=== PATIENT | female | born 1970 | race Caucasian/White ===

== ENCOUNTER 2024-03-28 01:20 | Observation (INO) | payer OTHER ==
[2024-03-28] MEDS: SODIUM CHLORIDE 0.9% 500 ML 500 ML IV STA (02:06)
[2024-03-28] MEDS: KETOROLAC 15 MG/ML 1 ML VIAL IVP STA (02:06)
[2024-03-28 02:34] LABS: ALT 11 U/L (4-34); AST 19 U/L (14-36); African American GFR (CKD) >90 (>60 ml/min/1.73 sqM); Albumin 3.6 g/dL (3.5-5.0); Alkaline Phosphatase 61 U/L (38-126); Anion Gap 2 mmol/L; Blood Urea Nitrogen 20 mg/dL (7-17); Calcium 8.5 mg/dL (8.4-10.2); Carbon Dioxide 30 mmol/L (22-30); Chloride 106 mmol/L (98-107); Glucose 101 mg/dL (74-99); Non-African American GFR(CKD) >90 (>60 ml/min/1.73 sqM); Potassium 3.4 mmol/L (3.5-5.1); Sodium 138 mmol/L (137-145); Total Bilirubin 0.3 mg/dL (0.2-1.3); Total Protein 6.5 g/dL (6.3-8.2)
[2024-03-28 02:39] LABS: Basophils # (A) 0.1 k/uL (0-0.2); Basophils % (A) 1 %; Eosinophils # (A) 0.1 k/uL (0-0.7); Eosinophils % (A) 2 %; HCT 33.8 % (34.0-46.0); HGB 11.3 gm/dL (11.4-16.0); Lymphocytes # (A) 1.3 k/uL (1.0-4.8); Lymphocytes % (A) 24 %; MCH 29.6 pg (25.0-35.0); MCHC 33.4 g/dL (31.0-37.0); MCV 88.6 fL (80.0-100.0); Mean Platelet Volume 7.6; Monocytes # (A) 0.5 k/uL (0-1.0); Monocytes % (A) 10 %; Neutrophils # (A) 3.4 k/uL (1.3-7.7); Neutrophils % (A) 62 %; Platelet Count 198 k/uL (150-450); RBC 3.82 m/uL (3.80-5.40); RDW 12.7 % (11.5-15.5); WBC 5.6 k/uL (3.8-10.6)
[2024-03-28 02:53] LABS: Appearance,Urine Clear (Clear); Bilirubin,Urine Negative (Negative); Blood,Urine Trace (Negative); Color,Urine Light Yellow; Glucose,Urine (UA) Negative (Negative); Ketones,Urine Negative (Negative); Leukocyte Esterase,Urine Negative (Negative); Mucus,Urine Rare /hpf; Nitrite,Urine Negative (Negative); PH, Urine 5.5 (5.0-8.0); Protein,Urine Negative (Negative); RBC,Urine 1 /hpf (0-5); Specific Gravity,Urine 1.024 (1.001-1.035); Squamous Epithelial Cell,Urine 1 /hpf (0-4); Urobilinogen,Urine <2.0 mg/dL (<2.0); WBC,Urine 1 /hpf (0-5)
--- NOTE | 2024-03-28 03:33 | ED ---
Abdominal Pain HPI - General Source: patient Mode of arrival: ambulatory <Jaiden Cook - Last Filed: 03/28/24 04:22> <Prasad Quintero - Last Filed: 03/28/24 05:53> - General Chief Complaint: Abdominal Pain Stated Complaint: abd pain and swelling Time Seen by Provider: 03/28/24 01:45 - History of Present Illness Initial Comments: 54-year-old female with chief complaint of pain to the abdomen. Patient has had this pain for a long over the right lower quadrant for about a month. She states that it seems to be increasing in size. No nausea or vomiting. No constipation or diarrhea. No fevers or chills. She denies any injury or tra starr. (Jaiden Cook) - Related Data Allergies Allergy/AdvReac Type Severity Reaction Status Date / Time No Known Allergies Allergy Verified 03/28/24 01:39 Review of Systems ROS Other: All systems not noted in ROS Statement are negative. <Jaiden Cook - Last Filed: 03/28/24 04:22> ROS Other: All systems not noted in ROS Statement are negative. <Prasad Quintero - Last Filed: 03/28/24 05:53> ROS Statement: Those systems with pertinent positive or pertinent negative responses have been documented in the HPI. General Exam Limitations: no limitations General appearance: alert, in no apparent distress Head exam: Present: atraumatic, normocephalic Eye exam: Present: normal appearance, EOMI Neck exam: Present: normal inspection. Absent: meningismus Respiratory exam: Present: normal lung sounds bilaterally. Absent: respiratory distress, wheezes, rales, rhonchi, stridor Cardiovascular Exam: Present: regular rate, normal rhythm, normal heart sounds. Absent: systolic murmur, diastolic murmur, rubs, gallop, clicks GI/Abdominal exam: Present: soft, hernia. Absent: distended, tenderness, guarding, rebound, rigid Neurological exam: Present: alert, oriented X3 Psychiatric exam: Present: normal affect, normal mood Skin exam: Present: warm, dry <Jaiden Cook - Last Filed: 03/28/24 04:22> Course Vital Signs 03/28/24 03/28/24 01:33 03:08 Temperature 98.3 F Pulse Rate 71 60 Respiratory 18 16 Rate Blood Pressure 108/65 100/64 O2 Sat by Pulse 99 97 Oximetry Medical Decision Making - Lab Data Result diagrams: 03/28/24 02:00 03/28/24 02:00 <Jaiden Cook - Last Filed: 03/28/24 04:22> - Lab Data Result diagrams: 03/28/24 02:00 03/28/24 02:00 <Prasad Quintero - Last Filed: 03/28/24 05:53> - Medical Decision Making Was pt. sent in by a medical professional or institution (, PA, STRIPPER MACHINE OPERATOR, urgent care, hospital, or correction...) When possible be specific @ -No Did you speak to anyone other than the patient for history (EMS, parent, family, police, friend...)? What history was obtained from this source @ -No Did you review nursing and triage notes (agree or disagree)? Why? @ -I reviewed and agree with nursing and triage notes Were old charts reviewed (outside hosp., previous admission, EMS record, old EKG , old radiological studies, urgent care reports/EKG's, correction records)? Report findings @ -No old charts were reviewed Differential Diagnosis (chest pain, altered mental status, abdominal pain women, abdominal pain men, vaginal bleeding, weakness, fever, dyspnea, syncope, headache, dizziness, GI bleed, back pain, seizure, CVA, palpatations, mental health, musculoskeletal)? @ -MDM Differential Abdominal Pain Women: Appendicitis, Cholecystitis, diverticulosis, ischemic bowel, pancreatitis, hepatitis, UTI, gastroenteritis, AAA, incarcerated hernia, bowel obstruction, constipation, inflammatory bowel, hepatitis, peptic ulcer disease, splenic infarction, perforated viscus, vulvitis, ovarian torsion, PID, kidney stone, placenta abruption... This is not meant to be an all-inclusive list EKG interpreted by me (3pts min.). @ -As above X-rays interpreted by me (1pt min.). @ -None done CT interpreted by me (1pt min.). @ -Report pending U/S interpreted by me (1pt. min.). @ -None done What testing was considered but not performed or refused? (CT, X-rays, U/S, labs)? Why? @ -None What meds were considered but not given or refused? Why? @ -None Did you discuss the management of the patient with other professionals (professionals i.e. Dr., PA, STRIPPER MACHINE OPERATOR, lab, RT, psych nurse, social media manager, lawyer real estate, teacher, seismology technical officer, director of casework department)? Give summary @ -No Was smoking cessation discussed for >3mins.? @ -No Was critical care preformed (if so, how long)? @ -No Were there social determinants of health that impacted care today? How? (Homelessness, low income, unemployed, alcoholism, drug addiction, transportation, low edu. Level, literacy, decrease access to med. care, penitentiary, rehab)? @ -No Was there de-escalation of care discussed even if they declined (Discuss DNR or withdrawal of care, Hospice)? DNR status @ -No What co-morbidities impacted this encounter? (DM, HTN, Smoking, COPD, CAD, Cancer, CVA, ARF, Chemo, Hep., AIDS, mental health diagnosis, sleep apnea, morbid obesity)? @ -None Was patient admitted / discharged? Hospital course, mention meds given and route, prescriptions, significant lab abnormalities, going to OR and other pertinent info. @ -54-year-old female presenting with chief complaint of painful lump to the abdominal wall. Appears consistent with hernia. I am unable to reduce this on exam. Lactic acid is WNL. CT is obtained and report is pending. Patient is signed out to my attending Dr. Quintero (Jaiden Cook) Clinical presentation consistent with incarcerated hernia. Case discussed with on-call general surgery, Dr. Rogers was going to accept the patient as an observation admission.. (Prasad Quintero) - Lab Data Lab Results 03/28/24 03/28/24 03/28/24 Range/Units 02:00 02:00 02:00 WBC 5.6 (3.8-10.6) k/uL RBC 3.82 (3.80-5.40) m/uL Hgb 11.3 L (11.4-16.0) gm/dL Hct 33.8 L (34.0-46.0) % MCV 88.6 (80.0-100.0) fL MCH 29.6 (25.0-35.0) pg MCHC 33.4 (31.0-37.0) g/dL RDW 12.7 (11.5-15.5) % Plt Count 198 (150-450) k/uL MPV 7.6 Neutrophils % 62 % Lymphocytes % 24 % Monocytes % 10 % Eosinophils % 2 % Basophils % 1 % Neutrophils # 3.4 (1.3-7.7) k/uL Lymphocytes # 1.3 (1.0-4.8) k/uL Monocytes # 0.5 (0-1.0) k/uL Eosinophils # 0.1 (0-0.7) k/uL Basophils # 0.1 (0-0.2) k/uL Sodium 138 (137-145) mmol/L Potassium 3.4 L (3.5-5.1) mmol/L Chloride 106 (98-107) mmol/L Carbon Dioxide 30 (22-30) mmol/L Anion Gap 2 mmol/L BUN 20 H (7-17) mg/dL Creatinine 0.57 (0.52-1.04) mg/dL Est GFR (CKD-EPI)AfAm >90 (>60 ml/min/1.73 sqM) Est GFR (CKD-EPI)NonAf >90 (>60 ml/min/1.73 sqM) Glucose 101 H (74-99) mg/dL Plasma Lactic Acid Jed (0.7-2.0) mmol/L Calcium 8.5 (8.4-10.2) mg/dL Total Bilirubin 0.3 (0.2-1.3) mg/dL AST 19 (14-36) U/L ALT 11 (4-34) U/L Alkaline Phosphatase 61 (38-126) U/L Total Protein 6.5 (6.3-8.2) g/dL Albumin 3.6 (3.5-5.0) g/dL Urine Color Light Yellow Urine Appearance Clear (Clear) Urine pH 5.5 (5.0-8.0) Ur Specific Pearl 1.024 (1.001-1.035) Urine Protein Negative (Negative) Urine Glucose (UA) Negative (Negative) Urine Ketones Negative (Negative) Urine Blood Trace H (Negative) Urine Nitrite Negative (Negative) Urine Bilirubin Negative (Negative) Urine Urobilinogen <2.0 (<2.0) mg/dL Ur Leukocyte Esterase Negative (Negative) Urine RBC 1 (0-5) /hpf Urine WBC 1 (0-5) /hpf Ur Squamous Epith Cells 1 (0-4) /hpf Urine Mucus Rare H (None) /hpf 03/28/24 Range/Units 02:10 WBC (3.8-10.6) k/uL RBC (3.80-5.40) m/uL Hgb (11.4-16.0) gm/dL Hct (34.0-46.0) % MCV (80.0-100.0) fL MCH (25.0-35.0) pg MCHC (31.0-37.0) g/dL RDW (11.5-15.5) % Plt Count (150-450) k/uL MPV Neutrophils % % Lymphocytes % % Monocytes % % Eosinophils % % Basophils % % Neutrophils # (1.3-7.7) k/uL Lymphocytes # (1.0-4.8) k/uL Monocytes # (0-1.0) k/uL Eosinophils # (0-0.7) k/uL Basophils # (0-0.2) k/uL Sodium (137-145) mmol/L Potassium (3.5-5.1) mmol/L Chloride (98-107) mmol/L Carbon Dioxide (22-30) mmol/L Anion Gap mmol/L BUN (7-17) mg/dL Creatinine (0.52-1.04) mg/dL Est GFR (CKD-EPI)AfAm (>60 ml/min/1.73 sqM) Est GFR (CKD-EPI)NonAf (>60 ml/min/1.73 sqM) Glucose (74-99) mg/dL Plasma Lactic Acid Jed 0.8 (0.7-2.0) mmol/L Calcium (8.4-10.2) mg/dL Total Bilirubin (0.2-1.3) mg/dL AST (14-36) U/L ALT (4-34) U/L Alkaline Phosphatase (38-126) U/L Total Protein (6.3-8.2) g/dL Albumin (3.5-5.0) g/dL Urine Color Urine Appearance (Clear) Urine pH (5.0-8.0) Ur Specific Pearl (1.001-1.035) Urine Protein (Negative) Urine Glucose (UA) (Negative) Urine Ketones (Negative) Urine Blood (Negative) Urine Nitrite (Negative) Urine Bilirubin (Negative) Urine Urobilinogen (<2.0) mg/dL Ur Leukocyte Esterase (Negative) Urine RBC (0-5) /hpf Urine WBC (0-5) /hpf Ur Squamous Epith Cells (0-4) /hpf Urine Mucus (None) /hpf Disposition <Jaiden Cook - Last Filed: 03/28/24 04:22> Decision Time: 05:53 <Prasad Quintero - Last Filed: 03/28/24 05:53> Clinical Impression: Incarcerated hernia Disposition: ADMITTED IP TO THIS HOSP Condition: Fair Referrals: Shiloh Omalley MD [Primary Care Provider] - 1-2 days
[2024-03-28] MEDS ORDERED: NALOXONE 0.4 MG/ML 1 ML VIAL IV PRN (05:25)
[2024-03-28] MEDS ORDERED: ONDANSETRON 4 MG/2 ML VIAL IVP PRN (05:25)
[2024-03-28] MEDS: SODIUM CHLORIDE 0.9% 1,000 ML IV SCH (05:40)
--- NOTE | 2024-03-28 05:52 | CT ---
EXAMINATION TYPE: CT abdomen pelvis w con DATE OF EXAM: 03/28/2024 HISTORY: hernia CT DLP: 603.7mGycm Automated Exposure Control for Dose Reduction was Utilized. CONTRAST: CT scan of the abdomen and pelvis is performed with IV Contrast, patient injected with 100 mL of Isov ue 370. COMPARISON: None. FINDINGS: LUNG BASES: No significant abnormality is appreciated. LIVER/GB: Contracted gallbladder. PANCREAS: No significant abnormality is seen. SPLEEN: No significant abnormality is seen. ADRENALS: No significant abnormality is seen. KIDNEYS: No significant abnormality is seen. BOWEL: No significant abnormality is seen. UTERUS/ADNEXA: Anteverted uterus displaced left of midline is seen. Superior to this there is a thin- walled cyst or cystic lesion measuring 11.5 x 12.5 cm axial image 58 with a heterogeneous solid compo nent along the superior right aspect measuring 7.5 x 4.9 cm axial image 50. LYMPH NODES: No greater than 1cm abdominal or pelvic lymph nodes are appreciated. OSSEOUS STRUCTURES: No significant abnormality is seen. OTHER: In the midline of the anterior wall of the pelvis there is small focal hernia with narrow neck measuring 1.2 cm-image 51-containing fat and ill-defined fluid. IMPRESSION: 1. Confirmation of narrow neck ventral wall hernia in the anterior wall of the upper pelvis below the umbilicus containing fat and ill-defined fluid. 2. There is a thin-walled cyst or cystic lesion in the pelvis with a solid component or adjacent hete rogeneous solid lesion with local mass effect worrisome for neoplasm. Ovarian origin is suspected. Ad vise gynecology oncology follow-up.
[2024-03-28] MEDS: KETOROLAC 15 MG/ML 1 ML VIAL IVP PRN (08:13)
[2024-03-28] MEDS: POTASSIUM CHLORIDE ER 20 MEQ TAB.ER PO SCH (10:13)
--- NOTE | 2024-03-28 13:03 | P.GSHP ---
History of Present Illness H&P Date: 03/28/24 Chief Complaint: Hernia 54-year-old female has history of a bulge right lower midline for the last month or 2. Increasing in discomfort over the last several days. Came to the ER for further evaluation. Patient with history of previous in the past. CAT scan was obtained showing a large cystic mass involving the pelvis. It is compressing the urinary bladder. Patient describes frequent urinary urgency and frequency. The hernia itself contains mildly inflamed fat. Per the patient this is not reducing spontaneously or with efforts. Pain is minimal today. No nausea or vomiting. Has not seen a institute director in many years. - Review of Systems Comment: The patient denies any acute changes in vision or hearing, no dysphagia or odynophagia, no chest pain or shortness of breath, no dysuria or hematuria, no headache, no runny nose, no rectal bleeding or melena, no unexplained weight loss Past Medical History Past Medical History: Asthma, Pneumonia History of Any Multi-Drug Resistant Organisms: None Reported Past Surgical History: Tubal Ligation Additional Past Surgical History / Comment(s): c sectionsx3 Past Psychological History: Anxiety, Depression Smoking Status: Former smoker, Vaper - Past Family History Father Family Medical History: COPD Medications and Allergies Home Medications Medication Instructions Recorded Confirmed Type Escitalopram [Lexapro] 20 mg PO DAILY 03/28/24 03/28/24 History Allergies Allergy/AdvReac Type Severity Reaction Status Date / Time No Known Allergies Allergy Verified 03/28/24 07:51 Surgical - Exam Vital Signs Temp Pulse Resp BP Pulse Ox 98.3 F 71 18 108/65 99 03/28/24 01:33 03/28/24 01:33 03/28/24 01:33 03/28/24 01:33 03/28/24 01:33 Physical exam: General: Well-developed, well-nourished HEENT: Normocephalic, sclerae nonicteric Abdomen: Nontender, nondistended, small hernia right side of midline midway between pubis and umbilicus, unable to fully reduce Extremities: No edema Neuro: Alert and oriented Results - Labs 03/28/24 02:00 03/28/24 02:00 Abnormal Lab Results - Last 24 Hours (Table) 03/28/24 03/28/24 03/28/24 Range/Units 02:00 02:00 02:00 Hgb 11.3 L (11.4-16.0) gm/dL Hct 33.8 L (34.0-46.0) % Potassium 3.4 L (3.5-5.1) mmol/L BUN 20 H (7-17) mg/dL Glucose 101 H (74-99) mg/dL Urine Blood Trace H (Negative) Urine Mucus Rare H (None) /hpf Diabetes panel 03/28/24 Range/Units 02:00 Sodium 138 (137-145) mmol/L Potassium 3.4 L (3.5-5.1) mmol/L Chloride 106 (98-107) mmol/L Carbon Dioxide 30 (22-30) mmol/L BUN 20 H (7-17) mg/dL Creatinine 0.57 (0.52-1.04) mg/dL Glucose 101 H (74-99) mg/dL Calcium 8.5 (8.4-10.2) mg/dL AST 19 (14-36) U/L ALT 11 (4-34) U/L Alkaline Phosphatase 61 (38-126) U/L Total Protein 6.5 (6.3-8.2) g/dL Albumin 3.6 (3.5-5.0) g/dL Calcium panel 03/28/24 Range/Units 02:00 Calcium 8.5 (8.4-10.2) mg/dL Albumin 3.6 (3.5-5.0) g/dL Pituitary panel 03/28/24 Range/Units 02:00 Sodium 138 (137-145) mmol/L Potassium 3.4 L (3.5-5.1) mmol/L Chloride 106 (98-107) mmol/L Carbon Dioxide 30 (22-30) mmol/L BUN 20 H (7-17) mg/dL Creatinine 0.57 (0.52-1.04) mg/dL Glucose 101 H (74-99) mg/dL Calcium 8.5 (8.4-10.2) mg/dL Adrenal panel 03/28/24 Range/Units 02:00 Sodium 138 (137-145) mmol/L Potassium 3.4 L (3.5-5.1) mmol/L Chloride 106 (98-107) mmol/L Carbon Dioxide 30 (22-30) mmol/L BUN 20 H (7-17) mg/dL Creatinine 0.57 (0.52-1.04) mg/dL Glucose 101 H (74-99) mg/dL Calcium 8.5 (8.4-10.2) mg/dL Total Bilirubin 0.3 (0.2-1.3) mg/dL AST 19 (14-36) U/L ALT 11 (4-34) U/L Alkaline Phosphatase 61 (38-126) U/L Total Protein 6.5 (6.3-8.2) g/dL Albumin 3.6 (3.5-5.0) g/dL Assessment and Plan (1) Incarcerated hernia Narrative/Plan: 54-year-old female with incarcerated incisional hernia. This is symptomatic however does not require urgent surgical intervention. Patient's cystic pelvic mass is a priority at this point to be evaluated. Will consult gynecology. May resume regular diet. Current Visit: Yes Status: Acute Code(s): K46.0 - UNSP ABDOMINAL HERNIA WITH OBSTRUCTION, WITHOUT GANGRENE SNOMED Code(s): 64484037
[2024-03-28 23:13] VITALS: RESP 16
[2024-03-29 08:00] LABS: Potassium 4.6 mmol/L (3.5-5.1)
[2024-03-29] MEDS: ESCITALOPRAM 20 MG TAB PO SCH (08:08)
--- NOTE | 2024-03-29 08:16 | US ---
EXAMINATION TYPE: US pelvic complete DATE OF EXAM: 03/29/2024 COMPARISON: CT 03/28/2024 CLINICAL INDICATION: Female, 54 years old with history of adnexal mass; adnexal mass visualized on CT . Pelvic pressure, urinary frequency. TECHNIQUE: Transabdominal (TA). Date of LMP: unknown EXAM MEASUREMENTS: Uterus: 5.7 x 2.5 x 3.1 cm Left Ovary: 3.8 x 2.2 x 2.0 cm 1. Uterus: Anteverted calcifications noted 2. Endometrium: not clearly visualized 3. Right Ovary/right adnexa : large anechoic lesion midline = 12.0 x 10.0 x 12.2cm with solid compon ent = 5.3 x 5.4 x 6.6cm 4. Left Ovary: anechoic lesion = 1.6 x 1.3 x 1.6cm 5. Left Adnexa: appears wnl 6. Posterior cul-de-sac: appears wnl IMPRESSION: 1. Large complex cystic mass right ovary with internal debris and a 5 cm solid component. Additional workup for neoplasm is recommended.
--- NOTE | 2024-03-29 10:33 | P.OBCN ---
History of Present Illness Consult date: 03/29/24 Reason for consult: pelvic mass Chief complaint: abdominal pain History of present illness: 54 year old presented to ER with abdominal pain. CT showed a hernia and a thin walled cyst with solid component in the right adnexa. PT was admitted for pain control and possible surgery. I ordered an US that is consistent with the CT. 12 cm cyst with 6.6 cm solid component. CA-125 is pending. Review of Systems All systems: negative Constitutional: Denies chills, Denies fever Eyes: denies blurred vision, denies pain Ears, nose, mouth and throat: Denies headache, Denies sore throat Cardiovascular: Denies chest pain, Denies shortness of breath Respiratory: Denies cough Gastrointestinal: Reports abdominal pain, Denies diarrhea, Denies nausea, Denies vomiting Genitourinary: Denies dysuria, Denies hematuria Musculoskeletal: Denies myalgias Integumentary: Denies pruritus, Denies rash Neurological: Denies numbness, Denies weakness Psychiatric: Denies anxiety, Denies depression Endocrine: Denies fatigue, Denies weight change Past Medical History Past Medical History: Asthma, Pneumonia History of Any Multi-Drug Resistant Organisms: None Reported Past Surgical History: Tubal Ligation Additional Past Surgical History / Comment(s): c sectionsx3 Past Psychological History: Anxiety, Depression Smoking Status: Former smoker, Vaper - Past Family History Father Family Medical History: COPD Medications and Allergies Home Medications Medication Instructions Recorded Confirmed Type Escitalopram [Lexapro] 20 mg PO DAILY 03/28/24 03/28/24 History Allergies Allergy/AdvReac Type Severity Reaction Status Date / Time No Known Allergies Allergy Verified 03/28/24 15:19 Exam Osteopathic Statement: *. No significant issues noted on an osteopathic structural exam other than those noted in the History and Physical/Consult. Vital Signs Temp Pulse Resp BP Pulse Ox 03/29/24 07:00 98.2 F 60 16 106/64 97 03/29/24 02:00 97.9 F 50 L 16 103/68 97 03/28/24 20:53 64 03/28/24 20:00 98.4 F 64 16 115/68 97 03/28/24 14:45 97.9 F 60 17 100/65 98 Intake and Output 03/28/24 03/29/24 03/29/24 22:59 06:59 14:59 Intake Total 236 Balance 236 Intake: Oral 236 Other: # Voids 1 limited exam- diffusely tender abdomen Results Result Diagrams: 03/28/24 02:00 03/29/24 06:56 Assessment and Plan (1) Pelvic mass Current Visit: Yes Status: Acute Code(s): R19.00 - INTRA-ABD AND PELVIC SWELLING, MASS AND LUMP, UNSP SITE SNOMED Code(s): 09674894 (2) Incarcerated hernia Current Visit: Yes Status: Acute Code(s): K46.0 - UNSP ABDOMINAL HERNIA WITH OBSTRUCTION, WITHOUT GANGRENE SNOMED Code(s): 92739739 Plan: 1. CA-125 pending 2. rec to either transfer to or discharge and follow up with [facility]. This can be Dr Martinez or Dr Mckinney in [facility] or Dr Triana in [facility]. I discussed my thoughts of possible ovarian cancer with the patient and that she needs to follow up with [facility] for workup and surgical intervention. Pt expressed understanding.
--- NOTE | 2024-03-29 14:04 | P.CONS ---
History of Present Illness - Reason for Consult Consult date: 03/28/24 Abdominal pain - History of Present Illness 54-year-old female came in with complaints of right lower and suprapubic abdominal pain. Urinalysis did not show any UTI. Patient pain is a sharp in nature and crampy in nature nonradiating. Patient has a ventral hernia which was believed to be causing her pain. But CT of the abdomen showed large complex cystic mass because of which [facility] was consulted. Patient denies any nausea vomiting. REVIEW OF SYSTEMS: CONSTITUTIONAL: No fever, no malaise, no fatigue. HEENT: No recent visual problems or hearing problems. Denied any sore throat. CARDIOVASCULAR: No chest pain, orthopnea, PND, no palpitations, no syncope. PULMONARY: No shortness of breath, no cough, no hemoptysis. GASTROINTESTINAL: No diarrhed NEUROLOGICAL: No headaches, no weakness, no numbness. HEMATOLOGICAL: Denies any bleeding or petechiae. GENITOURINARY: Denies any burning micturition, frequency, or urgency. MUSCULOSKELETAL/RHEUMATOLOGICAL: Denies any joint pain, swelling, or any muscle pain. ENDOCRINE: Denies any polyuria or polydipsia. The rest of the 14-point review of systems is negative. PHYSICAL EXAMINATION: GENERAL: The patient is alert and oriented x3, not in any acute distress. Well developed, well nourished. HEENT: Pupils are round and equally reacting to light. EOMI. No scleral icterus. No conjunctival pallor. Normocephalic, atraumatic. No pharyngeal erythema. No thyromegaly. CARDIOVASCULAR: S1 and S2 present. No murmurs, rubs, or gallops. PULMONARY: Chest is clear to auscultation, no wheezing or crackles. ABDOMEN: Soft mild tenderness in the lower abdomen and a ventral hernia-, nondistended, normoactive bowel sounds. No palpable organomegaly. MUSCULOSKELETAL: No joint swelling or deformity. EXTREMITIES: No cyanosis, clubbing, or pedal edema. NEUROLOGICAL: Gross neurological examination did not reveal any focal deficits. SKIN: No rashes. Assessment and plan Abdominal pain: Can be incarcerated hernia, general surgery is following the patient and this can be secondary to the complex cyst [facility] was consulted as well. -Depression for which patient is on Lexapro which will be resumed -Hypokalemia potassium will be replaced Past Medical History Past Medical History: Asthma, Pneumonia History of Any Multi-Drug Resistant Organisms: None Reported Past Surgical History: Tubal Ligation Additional Past Surgical History / Comment(s): c sectionsx3 Past Psychological History: Anxiety, Depression Smoking Status: Former smoker, Vaper - Past Family History Father Family Medical History: COPD Medications and Allergies Home Medications Medication Instructions Recorded Confirmed Type Escitalopram [Lexapro] 20 mg PO DAILY 03/28/24 03/28/24 History Allergies Allergy/AdvReac Type Severity Reaction Status Date / Time No Known Allergies Allergy Verified 03/28/24 15:19 Physical Exam Vitals: Vital Signs Temp Pulse Resp BP Pulse Ox 03/29/24 07:00 98.2 F 60 16 106/64 97 03/29/24 02:00 97.9 F 50 L 16 103/68 97 03/28/24 20:53 64 03/28/24 20:00 98.4 F 64 16 115/68 97 03/28/24 14:45 97.9 F 60 17 100/65 98 Intake and Output 03/28/24 03/29/24 03/29/24 22:59 06:59 14:59 Intake Total 236 Balance 236 Intake: Oral 236 Other: Voiding Method Toilet # Voids 1 Results CBC & Chem 7: 03/28/24 02:00 03/29/24 06:56 Labs: Abnormal Lab Results - Last 24 Hours (Table) 03/29/24 Range/Units 06:56 CA 125 Antigen 195.0 H (0.0-30.1) U/mL
[2024-03-29] MEDS ORDERED: HYDROcodone/APAP 5-325MG 1 EACH TAB PO PRN (15:40)
[2024-03-29] MEDS ORDERED: traMADol 50 MG TAB PO PRN (15:41)
[2024-03-29] MEDS ORDERED: ACETAMINOPHEN TAB 325 MG TAB PO PRN (15:46)
--- NOTE | 2024-03-29 15:49 | P.PN ---
Subjective Progress Note Date: 03/29/24 CHIEF COMPLAINT: hernia HISTORY OF PRESENT ILLNESS: Patient presented with right lower abdominal pain. She has a known hernia. There is also a large right ovarian cystic mass noted on ultrasound. Her CA125 level is elevated. She has been seen by the SOFTWARE DEVELOPMENT COORDINATOR service that recommended to either transfer or discharge patient with follow-up with [facility] SOFTWARE DEVELOPMENT COORDINATOR oncology. Patient does report abdominal pain. She denies any nausea or vomiting. Afebrile. She is having bowel movements and flatus. Denies any nausea or vomiting. Potassium improved at 4.6 CA125 level is 195 PHYSICAL EXAM: VITAL SIGNS: Reviewed. GENERAL: Well-developed in no acute distress. HEENT: No sclera icterus. Extraocular movements grossly intact. Moist buccal mucosa. Head is atraumatic, normocephalic. ABDOMEN: Soft. Nondistended. Patient has tenderness right lower quadrant with some fullness noted. Small hernia to the right side of her midline incision between the pubis and umbilicus. Soft unable to fully reduced. Mild tenderness. ASSESSMENT: 1. Incarcerated incisional hernia 2. Large right ovarian cystic mass with elevated CA125 level PLAN: -Continue pain management. Tylenol and Ultram added as needed for pain -Continue regular diet -Anticipate discharge tomorrow with outpatient follow-up with [facility] SOFTWARE DEVELOPMENT COORDINATOR oncology Physician Director Of Infection Control note has been reviewed by physician. Signing provider agrees with the documented findings, assessment, and plan of care. I have personally seen and examined the patient, reviewed the TOASTER OPERATOR /PAs history, exam and MDM and agree with the assessment and plan as written. Based on total visit time, I have performed more than 50% of the visit. As above: Patient was seen by gynecology. Recommending inpatient or outpatient evaluation by gynecologic oncology. Patient still requiring IV narcotics. Will plan transfer to tertiary care center if pain persists overnight. Objective - Vital Signs Vital signs: Vital Signs Temp 98.2 F 03/29/24 07:00 Pulse 60 03/29/24 07:00 Resp 16 03/29/24 07:00 BP 106/64 03/29/24 07:00 Pulse Ox 97 03/29/24 07:00 FiO2 Intake & Output 03/28/24 03/29/24 03/29/24 18:59 06:59 18:59 Intake Total 586 Balance 586 Weight 56.699 kg Intake: Oral 586 Other: Voiding Method Toilet Toilet # Voids 2 1 - Labs CBC & Chem 7: 03/28/24 02:00 03/29/24 06:56 Labs: Abnormal Lab Results - Last 24 Hours (Table) 03/29/24 Range/Units 06:56 CA 125 Antigen 195.0 H (0.0-30.1) U/mL
--- NOTE | 2024-03-29 20:12 | P.PN ---
Subjective Progress Note Date: 03/29/24 54-year-old female came in with complaints of right lower and suprapubic abdominal pain. Urinalysis did not show any UTI. Patient pain is a sharp in nature and crampy in nature nonradiating. Patient has a ventral hernia which was believed to be causing her pain. But CT of the abdomen showed large complex cystic mass because of which CLINICAL REHABILITATION AIDE was consulted. Patient denies any nausea vomiting. 03/29/2024 Patient is evaluated in follow up today on the medical floor. OBGYN has evaluated the patient and recommending either discharge and follow up with rn obgyn onc outpatient or transfer to tertiary care center. Patient continues to report significant pelvic discomfort. CA 125 antigen comes back elevated at 195.0. Plans for incisional hernia repair on hold per surgery. Cervical mass will take priority. Review of Systems Constitutional: Denied any fatigue denied any fever. Cardio vascular: denied any chest pain, palpitations Gastrointestinal: denied any nausea, vomiting, diarrhea Pulmonary: Denied any shortness of breath cough Neurologic denied any new focal deficits All inpatient medications were reviewed and appropriate changes in these medications as dictated in the interval history and assessment and plan. PHYSICAL EXAMINATION: GENERAL: The patient is alert and oriented x3, not in any acute distress. Well developed, well nourished. HEENT: Pupils are round and equally reacting to light. EOMI. No scleral icterus. No conjunctival pallor. Normocephalic, atraumatic. No pharyngeal erythema. No thyromegaly. CARDIOVASCULAR: S1 and S2 present. No murmurs, rubs, or gallops. PULMONARY: Chest is clear to auscultation, no wheezing or crackles. ABDOMEN: Soft mild tenderness in the lower abdomen and a ventral hernia-, nondistended, normoactive bowel sounds. No palpable organomegaly. MUSCULOSKELETAL: No joint swelling or deformity. EXTREMITIES: No cyanosis, clubbing, or pedal edema. NEUROLOGICAL: Gross neurological examination did not reveal any focal deficits. SKIN: No rashes. Assessment and plan Abdominal pain: Can be incarcerated hernia, general surgery is following the p atient and this can be secondary to the complex cyst CLINICAL REHABILITATION AIDE was consulted concern for pelvic mass and recommending to follow up with rn obgyn oncology. -Depression for which patient is on Lexapro which will be resumed -Hypokalemia potassium was replaced and now normalized. Full Code The impression and plan of care has been dictated by Bri Gan Nurse Practitioner as directed. Dr. Kari MD I have performed a history and physical examination and medical decision making of this patient, discussed the same with the dictator, and agree with the dictators assessment and plan as written, documented as a scribe. Based on total visit time, I have performed more than 50% of this visit. Objective - Vital Signs Vital signs: Vital Signs Temp 97.5 F L 03/29/24 15:46 Pulse 64 03/29/24 15:46 Resp 16 03/29/24 15:46 BP 104/64 03/29/24 15:46 Pulse Ox 97 03/29/24 15:46 FiO2 Intake & Output 03/29/24 03/29/24 03/30/24 06:59 18:59 06:59 Other: Voiding Method Toilet # Voids 1 - Labs CBC & Chem 7: 03/28/24 02:00 03/29/24 06:56 Labs: Abnormal Lab Results - Last 24 Hours (Table) 03/29/24 Range/Units 06:56 CA 125 Antigen 195.0 H (0.0-30.1) U/mL Assessment and Plan Time with Patient: Less than 30
[2024-03-30 09:42] VITALS: BP 89/60; PULSE 87; TEMP 98.8
--- NOTE | 2024-03-30 12:42 | P.PN ---
Subjective Progress Note Date: 03/30/24 54-year-old female came in with complaints of right lower and suprapubic abdominal pain. Urinalysis did not show any UTI. Patient pain is a sharp in nature and crampy in nature nonradiating. Patient has a ventral hernia which was believed to be causing her pain. But CT of the abdomen showed large complex cystic mass because of which PULL OVER MACHINE OPERATOR was consulted. Patient denies any nausea vomiting. 03/29/2024 Patient is evaluated in follow up today on the medical floor. OBGYN has evaluated the patient and recommending either discharge and follow up with surgical assistant onc outpatient or transfer to tertiary care center. Patient continues to report significant pelvic discomfort. CA 125 antigen comes back elevated at 195.0. Plans for incisional hernia repair on hold per surgery. Cervical mass will take priority. 03/30/2024 Patient is evaluated today in follow up on [address] [place] [address]. Has been up ambulating. Report mild discomfort in her lower back. Also reports abdominal fullness. Bladder scanned and appears to be emptying her bladder. Discharge home vs. transfer. Review of Systems Constitutional: Denied any fatigue denied any fever. Cardio vascular: denied any chest pain, palpitations Gastrointestinal: denied any nausea, vomiting, diarrhea Pulmonary: Denied any shortness of breath cough Neurologic denied any new focal deficits All inpatient medications were reviewed and appropriate changes in these m edications as dictated in the interval history and assessment and plan. PHYSICAL EXAMINATION: GENERAL: The patient is alert and oriented x3, not in any acute distress. Well developed, well nourished. HEENT: Pupils are round and equally reacting to light. EOMI. No scleral icterus. No conjunctival pallor. Normocephalic, atraumatic. No pharyngeal erythema. No thyromegaly. CARDIOVASCULAR: S1 and S2 present. No murmurs, rubs, or gallops. PULMONARY: Chest is clear to auscultation, no wheezing or crackles. ABDOMEN: Soft mild tenderness in the lower abdomen and a ventral hernia-, nondistended, normoactive bowel sounds. No palpable organomegaly. MUSCULOSKELETAL: No joint swelling or deformity. EXTREMITIES: No cyanosis, clubbing, or pedal edema. NEUROLOGICAL: Gross neurological examination did not reveal any focal deficits. SKIN: No rashes. Assessment and plan Abdominal pain: Can be incarcerated hernia, general surgery is following the patient and this can be secondary to the complex cyst PULL OVER MACHINE OPERATOR was consulted concern for pelvic mass and recommending to follow up with surgical assistant oncology. -Depression for which patient is on Lexapro which will be resumed -Hypokalemia potassium was replaced and now normalized. Full Code The impression and plan of care has been dictated by Bri Gan, Nurse Practitioner as directed. Dr. Kari MD I have performed a history and physical examination and medical decision making of this patient, discussed the same with the dictator, and agree with the dictators assessment and plan as written, documented as a scribe. Based on total visit time, I have performed more than 50% of this visit. Objective - Vital Signs Vital signs: Vital Signs Temp 98.8 F 03/30/24 08:53 Pulse 87 03/30/24 08:53 Resp 16 03/30/24 08:53 BP 89/60 03/30/24 08:53 Pulse Ox 95 03/30/24 00:55 FiO2 Intake & Output 03/29/24 03/30/24 03/30/24 18:59 06:59 18:59 Other: Voiding Method Toilet Toilet # Voids 3 1 - Labs CBC & Chem 7: 03/28/24 02:00 03/29/24 06:56 Assessment and Plan Time with Patient: Less than 30
--- NOTE | 2024-03-30 16:06 | P.DS ---
Providers Date of admission: 03/28/24 05:53 Expected date of discharge: 03/30/24 Attending physician: Pankaj Perez Consults: 03/28/24 09:50 Consult Physician Routine Consulting Provider: Mamadou Pierce Consult Reason/Comments: medical management Do you want consulting provider notified?: Already Contacted 03/28/24 12:30 Consult Physician Routine Consulting Provider: Elba Person Consult Reason/Comments: cystic lesion in pelvis Do you want consulting provider notified?: Yes Primary care physician: Shiloh Omalley Hospital Course: Discharge diagnosis 1. Incarcerated incisional hernia 2. Large right ovarian cystic mass with elevated CA125 level Hospital course This is a 54-year-old female who presented to the hospital with abdominal pain and hernia bulge to the right of her midline incision. She had a CT scan completed that showed a large cystic mass in the pelvis and then had a ultrasound that reported large complex cystic mass right ovary. Patient seen by MACHINE CHAIN MAKER service they recommended follow-up with MACHINE CHAIN MAKER oncology out of [place] or patient could be transferred. Patient's pain is controlled. She is tolerating diet. She is agreeable to follow-up with the MACHINE CHAIN MAKER oncologist outpatient. Patient is stable for discharge. Please refer to chart for any further details. Physician Professor Of Archaeology note has been reviewed by physician. Signing provider agrees with the documented findings, assessment, and plan of care. Patient Condition at Discharge: Stable Plan - Discharge Summary Discharge Rx Participant: Yes New Discharge Prescriptions: New traMADol HCl [Ultram] 50 mg PO Q6HR PRN 5 Days #20 tab PRN Reason: Pain Continue Escitalopram [Lexapro] 20 mg PO DAILY Discharge Medication List Escitalopram [Lexapro] 20 mg PO DAILY 03/28/24 [History] traMADol HCl [Ultram] 50 mg PO Q6HR PRN 5 Days #20 tab 03/30/24 [Rx] Follow up Appointment(s)/Referral(s): Shiloh Omalley MD [Primary Care Provider] - 1-2 days Pankaj Perez MD [Medical Doctor] - 2 Weeks Activity/Diet/Wound Care/Special Instructions: Follow up with Dr. Triana in [facility] on April 14 at 1:30 Diet: Regular Discharge Disposition: HOME SELF-CARE
== END 2024-03-30 14:45 | disposition home or self-care (01) ==
LOC: EC 01:20 → 6NMEDSUR 05:53 → 4FBP 03-29 14:00
PROVIDERS: ADMIT Surgery; ATTEND Surgery
DX: K43.0 Incisional hernia with obstruction, without gangrene (principal); N83.201 Unspecified ovarian cyst, right side; R97.1 Elevated cancer antigen 125 [CA 125]; E87.6 Hypokalemia; F32.A Depression, unspecified; Z98.891 History of uterine scar from previous surgery; Z87.891 Personal history of nicotine dependence
CPT/HCPCS: 96376 ×4; 96361; 96374; 99285; 36415; 80053; 86304; 83605; 84132; 85025; 81001; 76856; 74177; G0378 ×4; J1885 ×3; Q9967

== ENCOUNTER 2024-09-28 13:32 | Emergency (ER) | payer OTHER ==
--- NOTE | 2024-09-28 14:35 | ED ---
SOB HPI - General Source: patient, RN notes reviewed Mode of arrival: ambulatory Limitations: no limitations <Shawnee Ji - Last Filed: 09/28/24 14:34> - General Source: patient, RN notes reviewed, old records reviewed Mode of arrival: ambulatory Limitations: no limitations - History of Present Illness MD Complaint: shortness of breath, cough, chest pain, pain with inspiration, "asthma attack" -: week(s) Severity: moderate Severity scale (1-10): 5 Quality: sharp, stabbing Consistency: intermittent Improves With: nothing Worsens With: nothing Known History Of: COPD, asthma Context: recent URI, recent illness Associated Symptoms: cough Treatments Prior to Arrival: none <Fazal Thibodeaux - Last Filed: 09/29/24 18:28> - General Chief Complaint: Shortness of Breath Stated Complaint: cough,chest congestion Time Seen by Provider: 09/28/24 13:48 - History of Present Illness Initial Comments: Quick [id number] female with ovarian cancer currently on oral chemotherapy and asthma presenting to the emergency department chief complaint of productive cough that has been present since July. Patient is endorsing chest pain from the right mid chest that radiates into her right back. States that it is worse with inspiration. Patient has been experiencing dyspnea on exertion as well. (Shawnee Ji) This is a 54 female on oral chemotherapy with underlying history of asthma with a productive cough for weeks getting progressively worse with increasing shortness of breath and chest pain (Fazal Thibodeaux) - Related Data Home Medications Medication Instructions Recorded Confirmed Escitalopram [Lexapro] 20 mg PO DAILY 03/28/24 03/28/24 Previous Rx's Medication Instructions Recorded traMADol HCl [Ultram] 50 mg PO Q6HR PRN 5 Days #20 tab 03/30/24 Allergies Allergy/AdvReac Type Severity Reaction Status Date / Time No Known Allergies Allergy Verified 09/28/24 14:10 Review of Systems ROS Other: All systems not noted in ROS Statement are negative. <Shawnee Ji - Last Filed: 09/28/24 14:34> ROS Other: All systems not noted in ROS Statement are negative. <Fazal Thibodeaux - Last Filed: 09/29/24 18:28> ROS Statement: Those systems with pertinent positive or pertinent negative responses have been documented in the HPI. Past Medical History Past Medical History: Asthma, Cancer, Pneumonia History of Any Multi-Drug Resistant Organisms: None Reported Past Surgical History: Tubal Ligation Additional Past Surgical History / Comment(s): c sectionsx3 Past Psychological History: Anxiety, Depression Smoking Status: Former smoker, Vaper - Past Family History Father Family Medical History: COPD <StiAndreia huoe - Last Filed: 09/28/24 14:34> General Exam Limitations: no limitations <SienarAndreiaShawnee - Last Filed: 09/28/24 14:34> General appearance: alert, in no apparent distress Head exam: Present: atraumatic, normocephalic, normal inspection Eye exam: Present: normal appearance, PERRL, EOMI. Absent: scleral icterus, conjunctival injection, periorbital swelling ENT exam: Present: normal exam, mucous membranes moist Neck exam: Present: normal inspection. Absent: tenderness, meningismus, lymphadenopathy Respiratory exam: Present: normal lung sounds bilaterally. Absent: respiratory distress, wheezes, rales, rhonchi, stridor Cardiovascular Exam: Present: regular rate, normal rhythm, normal heart sounds. Absent: systolic murmur, diastolic murmur, rubs, gallop, clicks GI/Abdominal exam: Present: soft, normal bowel sounds. Absent: distended, tenderness, guarding, rebound, rigid Extremities exam: Present: normal inspection, full ROM, normal capillary refill. Absent: tenderness, pedal edema, joint swelling, calf tenderness Back exam: Present: normal inspection Neurological exam: Present: alert, oriented X3, CN II-XII intact Psychiatric exam: Present: normal affect, normal mood Skin exam: Present: warm, dry, intact, normal color. Absent: rash <Fazal Thibodeaux - Last Filed: 09/29/24 18:28> - General Exam Comments Initial Comments: Visual Physical Exam Vital signs reviewed General: Well-appearing, nontoxic, no acute distress. Head: Normocephalic, atraumatic Eyes: PERRLA, EOMI ENT: Airway patent Chest: Nonlabored breathing Skin: No visual rash, normal skin tone Neuro: Alert and oriented 3 Musculoskeletal: No gross abnormalities (Stieler,Shawnee) Course <Fazal Thibodeaux - Last Filed: 09/29/24 18:28> Vital Signs 09/28/24 09/28/24 09/28/24 14:10 18:48 20:17 Temperature 98.2 F 97.6 F Pulse Rate 73 72 84 Respiratory 20 18 Rate Blood Pressure 112/71 94/60 O2 Sat by Pulse 94 L 95 Oximetry 09/28/24 09/28/24 20:30 20:36 Temperature 97.8 F Pulse Rate 80 64 Respiratory 18 Rate Blood Pressure 98/60 O2 Sat by Pulse 95 Oximetry - Reevaluation(s) Reevaluation #1: 09/28/24 medical record is reviewed (Fazal Thibodeaux) Reevaluation #2: 09/28/24 patient pain is controlled (Fazal Thibodeaux) Reevaluation #3: 09/28/24 patient informed of results and questions answered (Fazal Thibodeaux) Reevaluation #4: Was pt. sent in by a medical professional or institution (, PA, CIGAR ROLLER, urgent care, hospital, or halfway...) When possible be specific @ -no Did you speak to anyone other than the patient for history (EMS, parent, family, police, friend...)? What history was obtained from this source @ -no Did you review nursing and triage notes (agree or disagree)? Why? @ -agree Are old charts reviewed (outside hosp., previous admission, EMS record, old EKG, old radiological studies, urgent care reports/EKG's, halfway records)? Report findings @ -yes Differential Diagnosis (chest pain, altered mental status, abdominal pain women, abdominal pain men, vaginal bleeding, weakness, fever, dyspnea, syncope, headache, dizziness, GI bleed, back pain, seizure, CVA, palpatations, mental health, musculoskeletal)? @ -prior EKG interpreted by me (3pts min.). @ -yes X-rays interpreted by me (1pt min.). @ -no CT interpreted by me (1pt min.). @ -yes negative for acute disease U/S interpreted by me (1pt. min.). @ -no What testing was considered but not performed or refused? (CT, X-rays, U/S, labs)? Why? @ -none What meds were considered but not given or refused? Why? @ -none Did you discuss the management of the patient with other professionals (professionals i.e. DrMat, PA, CIGAR ROLLER, lab, RT, psych nurse, social service agency director, cold strip roller, teacher, intelligence support officer, embedded case manager)? Give summary @ -no Was smoking cessation discussed for >3mins.? @ -no Was critical care preformed (if so, how long)? @ -no Were there social determinants of health that impacted care today? How? (Homelessness, low income, unemployed, alcoholism, drug addiction, transportation, low edu. Level, literacy, decrease access to med. care, [facility], rehab)? @ -none Was there de-escalation of care discussed even if they declined (Discuss DNR or withdrawal of care, Hospice)? DNR status @ -no What co-morbidities impacted this encounter? (DM, HTN, Smoking, COPD, CAD, C ancer, CVA, ARF, Chemo, Hep., AIDS, mental health diagnosis, sleep apnea, morbid obesity)? @ -none Was patient admitted / discharged? Hospital course, mention meds given and route, prescriptions, significant lab abnormalities, going to OR and other pertinent info. @ - 54 female here with cough and congestion bronchitis, URI with pleurisy no acute findings here in the ER patient can be discharged home Discharge Undiagnosed new problem with uncertain prognosis? @ -no Drug Therapy requiring intensive monitoring for toxicity (Heparin, Nitro, Insulin, Cardizem)? @ -no Were any procedures done? @ -no Diagnosis/symptom? @ -Chest pain pleurisy bronchitis Acute, or Chronic, or Acute on Chronic? @ -Acute Uncomplicated (without systemic symptoms) or Complicated (systemic symptoms)? @ -Complicated Side effects of treatment? @ -no Exacerbation, Progression, or Severe Exacerbation? @ -exacerbation Poses a threat to life or bodily function? How? (Chest pain, [place], [place], pneumonia, PE, COPD, DKA, ARF, appy, cholecystitis, CVA, Diverticulitis, Homicidal, Suicidal, threat to staff... and all critical care pts) @ -yes cancer and chest pain (Fazal Thibodeaux) Reevaluation #5: Differential Dyspnea: Coronary syndrome, arrhythmia, tamponade, asthma, COPD, pulmonary embolism, pneumonia, pneumothorax, pulmonary effusion, anaphylaxis, diabetic ketoacidosis, flailed chest, pulmonary contusion, diaphragmatic rupture, anemia, neuromuscular, this is not meant to be an all-inclusive list. (Fazal Thibodeaux) Medical Decision Making <Shawnee Ji - Last Filed: 09/28/24 14:34> - Lab Data Result diagrams: 09/28/24 14:56 09/28/24 14:56 - EKG Data -: EKG Interpreted by Me (EKG is sinus 62 VT 157 QRS 87 QTc 419) - Radiology Data Radiology results: report reviewed (CTA chest is negative for acute disease), image reviewed <Fazal Thibodeaux - Last Filed: 09/29/24 18:28> - Medical Decision Making I completed the quick note portion of this chart signed Shawnee Ji PA-C (Shawnee Ji) 54 female here with cough and congestion bronchitis, URI with pleurisy no acute findings here in the ER patient can be discharged home (Fazal Thibodeaux) - Lab Data Lab Results 09/28/24 09/28/24 09/28/24 Range/Units 14:56 14:56 14:56 WBC 10.3 (3.8-10.6) k/uL RBC 4.01 (3.80-5.40) m/uL Hgb 12.8 (11.4-16.0) gm/dL Hct 38.0 (34.0-46.0) % MCV 94.8 (80.0-100.0) fL MCH 32.0 (25.0-35.0) pg MCHC 33.8 (31.0-37.0) g/dL RDW 14.5 (11.5-15.5) % Plt Count 204 (150-450) k/uL MPV 7.7 Neutrophils % 77 % Lymphocytes % 16 % Monocytes % 4 % Eosinophils % 1 % Basophils % 0 % Neutrophils # 7.9 H (1.3-7.7) k/uL Lymphocytes # 1.7 (1.0-4.8) k/uL Monocytes # 0.4 (0-1.0) k/uL Eosinophils # 0.1 (0-0.7) k/uL Basophils # 0.0 (0-0.2) k/uL PT 10.1 (10.0-12.5) sec INR 0.9 (<1.2) APTT 23.6 (22.0-30.0) sec Sodium 136 L (137-145) mmol/L Potassium 4.1 (3.5-5.1) mmol/L Chloride 105 (98-107) mmol/L Carbon Dioxide 26 (22-30) mmol/L Anion Gap 5 mmol/L BUN 14 (7-17) mg/dL Creatinine 0.54 (0.52-1.04) mg/dL Est GFR (CKD-EPI)AfAm >90 (>60 ml/min/1.73 sqM) Est GFR (CKD-EPI)NonAf >90 (>60 ml/min/1.73 sqM) Glucose 92 (74-99) mg/dL Plasma Lactic Acid Jed (0.7-2.0) mmol/L Calcium 8.9 (8.4-10.2) mg/dL Magnesium 2.2 (1.6-2.3) mg/dL Total Bilirubin 0.2 (0.2-1.3) mg/dL AST 18 (14-36) U/L ALT 12 (4-34) U/L Alkaline Phosphatase 107 (38-126) U/L Troponin I (0.000-0.034) ng/mL NT-Pro-B Natriuret Pep 108 pg/mL Total Protein 7.6 (6.3-8.2) g/dL Albumin 4.5 (3.5-5.0) g/dL Influenza Type A (PCR) (Not Detectd) Influenza Type B (PCR) (Not Detectd) RSV (PCR) (Not Detectd) SARS-CoV-2 (PCR) (Not Detectd) 09/28/24 09/28/24 09/28/24 Range/Units 14:56 14:56 14:57 WBC (3.8-10.6) k/uL RBC (3.80-5.40) m/uL Hgb (11.4-16.0) gm/dL Hct (34.0-46.0) % MCV (80.0-100.0) fL MCH (25.0-35.0) pg MCHC (31.0-37.0) g/dL RDW (11.5-15.5) % Plt Count (150-450) k/uL MPV Neutrophils % % Lymphocytes % % Monocytes % % Eosinophils % % Basophils % % Neutrophils # (1.3-7.7) k/uL Lymphocytes # (1.0-4.8) k/uL Monocytes # (0-1.0) k/uL Eosinophils # (0-0.7) k/uL Basophils # (0-0.2) k/uL PT (10.0-12.5) sec INR (<1.2) APTT (22.0-30.0) sec Sodium (137-145) mmol/L Potassium (3.5-5.1) mmol/L Chloride (98-107) mmol/L Carbon Dioxide (22-30) mmol/L Anion Gap mmol/L BUN (7-17) mg/dL Creatinine (0.52-1.04) mg/dL Est GFR (CKD-EPI)AfAm (>60 ml/min/1.73 sqM) Est GFR (CKD-EPI)NonAf (>60 ml/min/1.73 sqM) Glucose (74-99) mg/dL Plasma Lactic Acid Jed 0.6 L (0.7-2.0) mmol/L Calcium (8.4-10.2) mg/dL Magnesium (1.6-2.3) mg/dL Total Bilirubin (0.2-1.3) mg/dL AST (14-36) U/L ALT (4-34) U/L Alkaline Phosphatase (38-126) U/L Troponin I <0.012 (0.000-0.034) ng/mL NT-Pro-B Natriuret Pep pg/mL Total Protein (6.3-8.2) g/dL Albumin (3.5-5.0) g/dL Influenza Type A (PCR) Not Detected (Not Detectd) Influenza Type B (PCR) Not Detected (Not Detectd) RSV (PCR) Not Detected (Not Detectd) SARS-CoV-2 (PCR) Not Detected (Not Detectd) Disposition <Shawnee Ji - Last Filed: 09/28/24 14:34> Is patient prescribed a controlled substance at d/c from ED?: No Time of Disposition: 18:45 <Fazal Thibodeaux - Last Filed: 09/29/24 18:28> Clinical Impression: Bronchitis, Pleurisy Disposition: HOME SELF-CARE Instructions (If sedation given, give patient instructions): Acute Bronchitis (ED), Chronic Bronchitis (ED) Referrals: None,Stated [Primary Care Provider] - 1-2 days
[2024-09-28 15:06] LABS: Basophils % (A) 0 %; Eosinophils # (A) 0.1 k/uL (0-0.7); Eosinophils % (A) 1 %; HGB 12.8 gm/dL (11.4-16.0); Lymphocytes # (A) 1.7 k/uL (1.0-4.8); Lymphocytes % (A) 16 %; MCHC 33.8 g/dL (31.0-37.0); MCV 94.8 fL (80.0-100.0); Mean Platelet Volume 7.7; Monocytes # (A) 0.4 k/uL (0-1.0); Monocytes % (A) 4 %; Neutrophils # (A) 7.9 k/uL (1.3-7.7); Neutrophils % (A) 77 %; Platelet Count 204 k/uL (150-450); RBC 4.01 m/uL (3.80-5.40); RDW 14.5 % (11.5-15.5); WBC 10.3 k/uL (3.8-10.6)
[2024-09-28 15:17] LABS: INR 0.9 (<1.2); Partial Thromboplastin Time 23.6 sec (22.0-30.0); Prothrombin Time 10.1 sec (10.0-12.5)
[2024-09-28 15:30] LABS: ALT 12 U/L (4-34); AST 18 U/L (14-36); African American GFR (CKD) >90 (>60 ml/min/1.73 sqM); Albumin 4.5 g/dL (3.5-5.0); Alkaline Phosphatase 107 U/L (38-126); Anion Gap 5 mmol/L; Blood Urea Nitrogen 14 mg/dL (7-17); Calcium 8.9 mg/dL (8.4-10.2); Carbon Dioxide 26 mmol/L (22-30); Chloride 105 mmol/L (98-107); Glucose 92 mg/dL (74-99); Magnesium 2.2 mg/dL (1.6-2.3); Non-African American GFR(CKD) >90 (>60 ml/min/1.73 sqM); Potassium 4.1 mmol/L (3.5-5.1); Sodium 136 mmol/L (137-145); Total Bilirubin 0.2 mg/dL (0.2-1.3); Total Protein 7.6 g/dL (6.3-8.2)
[2024-09-28 15:38] LABS: NT-Pro-B-Type Natriuretic Pept 108 pg/mL
--- NOTE | 2024-09-28 18:19 | CT ---
EXAMINATION TYPE: CT chest angio for PE DATE OF EXAM: 09/28/2024 6:10 PM COMPARISON: None CLINICAL INDICATION: Female, 54 years old with history of chest pain, sob, ovarian CA on chemo; krista/ ovarian ca TECHNIQUE/CONTRAST: CTA scan of the thorax is performed with IV Contrast, patient injected with 100ml mL of Isovue 370, M IP images are created and reviewed these are created on a separate workstation.. CT DLP: 240.9 mGycm, Automated exposure control for dose reduction was used. FINDINGS: Lungs/Pleura: No evidence of focal consolidation, pleural effusion or pneumothorax. Airway: Large airways are patent. Heart: Heart is within normal limits for size. Vasculature: There is no evidence for a filling defect within the pulmonary vasculature to suggest [place] pulmonary embolism. The pulmonary artery is of normal size. Right chest [id number] with tip terminating in the superior vena cava. Mediastinum: No gross evidence of adenopathy. Musculoskeletal: No acute osseous abnormalities Soft Tissues/lymph nodes: Unremarkable. Lower neck: No significant findings. Upper Abdomen: No significant findings. IMPRESSION: No evidence of pulmonary embolism. Follow up recommendations for incidental pulmonary nodules, if there are any, are per [employer]?s [employer] [employer] or [place]. https://radiopaedia.org/articles/wwgepecspp-vvfmlgo-higmqrhtc-cxrhzi-rghiatqnoonzuav-1?lang=us [facility], , 09/28/2024 6:16 PM
[2024-09-28 18:52] VITALS: RESP 18
[2024-09-28] MEDS: KETOROLAC 15 MG/ML 1 ML VIAL IVP STA (18:59)
[2024-09-28] MEDS: DEXAMETHASONE SOD PHOSPHATE 10 MG/ML 1 ML VIAL IVP STA (19:00)
[2024-09-28] MEDS: BENZONATATE 100 MG CAP PO STA (19:01)
[2024-09-28] MEDS: HYDROmorphone 0.5 MG/0.5 ML SYRINGE IVP STA (19:01)
[2024-09-28] MEDS: SODIUM CHLORIDE 0.9% 1,000 ML IV STA (19:08)
[2024-09-28] MEDS: IPRATROPIUM-ALBUTEROL 3 ML NEB INHALATION STA (20:16)
[2024-09-28 20:37] VITALS: BP 98/60; PULSE 64; TEMP 97.8
== END 2024-09-28 20:40 | disposition home or self-care (01) ==
LOC: EC 13:32
DX: J40 Bronchitis, not specified as acute or chronic (principal); R09.1 Pleurisy; F17.290 Nicotine dependence, other tobacco product, uncomplicated
CPT/HCPCS: 36415; 94640; 93005; 83880; 80053; 83605; 83735; 84484; 85025; 85610; 85730; 87636; 71275; 99285; 96374; 96375 ×2; 96361; J1100; J1885; J1171; Q9967